=== PATIENT | female | born 1940 | race Caucasian/White ===

== ENCOUNTER 2020-12-11 12:33 | Emergency (ER) | payer MEDICARE, MEDICAID, SELFPAY ==
--- NOTE | ~2020-12-11 | XR_ITS ---
EXAMINATION: XR chest 1V portable EXAM DATE: 12/11/2020 12:55 INDICATION: Transient alteration of awareness. TECHNIQUE: Portable AP frontal chest x-ray was obtained. There is no prior study for comparison. FINDINGS: The lungs are clear. There are no pleural effusions. The cardiomediastinal silhouette is within normal limits. There is no pneumothorax suspected. The bones and soft tissues are unremarkab le. IMPRESSION: No acute cardiopulmonary findings. Reviewed, dictated and finalized at location B.
[2020-12-11 12:30] VITALS: BP 112/68; PULSE 67; RESP 17; TEMP 36.4; O2SAT 97
--- NOTE | 2020-12-11 12:40 | ECG_ITS ---
Measurements Intervals [place] Rate: 74 P: 68 RI: 133 QRS: -18 QRSD: 83 T: 49 QT: 379 QTc: 422 Interpretive Statements SINUS RHYTHM WITH SINUS ARRHYTHMIA ATRIAL PREMATURE COMPLEXES VOLTAGE CRITERIA FOR LVH BASELINE ARTIFACT- I, II, III, AVR, AVL, AVF, V1-V6 BORDERLINE ECG Electronically Signed On 12-11-2020 13:03:15 CDT by Sharif Rogers D.O.
[2020-12-11 13:18] LABS: Basophils Percent Auto 0.2 % (0.2-1.2); Hematocrit 37.5 % (37.0-47.0); Hemoglobin 12.4 g/dL (12.0-15.0); Immature Granulocyte Absolute 0.05 K/mm3 (0.00-0.031); Immature Granulocyte Percent A 0.5 % (0-0.5); Lymphocytes Absolute Auto 0.89 K/mm3 (0.9-3.2); Lymphocytes Percent Auto 9.1 % (18.3-44.2); Mean Corpuscular HGB Conc 33.1 g/dl (32-36); Mean Corpuscular Hemoglobin 31.5 pg (26-34); Mean Corpuscular Volume 95.2 fl (80-100); Mean Platelet Volume 9.1 fl (7.4-10.4); Monocytes Absolute Auto 0.7 K/mm3 (0.1-0.6); Monocytes Percent Auto 6.6 % (2.6-8.5); Neutrophils Absolute Auto 8.2 K/mm3 (1.3-6.7); Neutrophils Percent Auto 83.6 % (45.5-73.1); Platelet Count Result 246 k/mm3 (150-375); Red Blood Count 3.94 M/mm3 (4.2-5.4); Red Cell Distribution Width 12.8 % (11.5-14.5); White Blood Count 9.8 K/mm3 (4.5-10.0)
[2020-12-11 13:27] LABS: Lipase 63 U/L (23-300)
[2020-12-11 13:29] LABS: Alanine Aminotransferase 16 U/L (4-35); Albumin Level 3.9 g/dL (3.5-5.1); Alkaline Phosphatase 55 U/L (38-126); Anion Gap 7 mmol/L (8-16); Aspartate Amino Transferase 19 U/L (14-36); Bilirubin,Total 0.3 mg/dL (0.2-1.3); Blood Urea Nitrogen 27 mg/dL (7-17); Calcium 11.5 mg/dL (8.4-10.2); Carbon Dioxide 28 mmol/L (22-30); Chloride 107 mmol/L (98-107); Estimated CRCL calculation 41 ml/min; Estimated Glomerular Filt Rate 60; Glucose 139 mg/dL (65-110); Potassium 4.3 mmol/L (3.4-5.0); Sodium 142 mmol/L (137-145)
--- NOTE | 2020-12-11 14:10 | ED.AMS ---
HPI - Altered Mental Status General Chief Complaint: Altered Mental Status Stated Complaint: SLOW TO RESPOND Time Seen by Provider: 12/11/20 12:39 Mode of arrival: EMS Limitations: clinical condition History of Present Illness HPI narrative: 80-year-old female Arrives from half-way with a distinct lack of any supporting documentation of the reason for her visit for the symptoms that led for her to be sent over Apparently there was concern that she was responding slowly but it is unknown who registered that concern or why Here she seems to be responding just fine although she does appear to be frail and elderly and naps when she is left alone She is pleasant and cooperative and makes no complaints, denies feeling ill, and does not complain of any pain anywhere She is DNR/comfort measures per her half-way paperwork Review of Systems Constitutional: Constitutional: Denies fever(s) Cardiovascular: Cardiovascular: Denies chest pain Respiratory: Respiratory: Denies cough Gastrointestinal: Gastrointestinal: Denies vomiting Genitourinary: Genitourinary: Denies flank pain Integumentary/Breasts: Skin/Breast: Denies rash Neurologic: Denies headache(s) and Denies weakness [facility] Past Medical History Medical History (Updated 12/11/20 @ 14:46 by Fer Veronica MD) Dementia Hypertension Exam Const: General: cooperative and no acute distress Other: Frail, elderly HENMT: Head: normal to inspection, normocephalic, atraumatic, no contusions and no hematomas Ears: external ears normal General nose exam: no epistaxis Eyes: Conjunctivae: conjunctivae normal EOM: EOMs intact bilaterally Neck: Neck: normal visual inspection, supple and no JVD Resp: Effort & Inspection: normal respiratory effort and not labored Auscultation: clear to auscultation bilaterally, no rales, no rhonchi, no wheezes and other (BS =) Cardio: Rate: regular rate Rhythm: regular rhythm Heart sounds: no murmurs GI: GI Palp: Yes Soft to palpation, No Guarding due to palpation present (GI), No Palpable mass present and No Rebound tenderness present : General: Yes no CVA tenderness Skin: General skin exam: normal color and no rashes or lesions noted Neuro: General: moves all extremities Speech: normal speech Other: Legs are weak, 5-, but symmetric Extrem: General: normal to inspection and no pedal edema Psych: Affect: normal affect Course Course Emergency Course: Reviewed results with jodi Fine to go back to nursing facility Vital Signs Vital signs: Vital Signs Temperature 36.4 C 12/11/20 12:30 Pulse Rate 67 12/11/20 12:30 Respiratory Rate 17 12/11/20 12:30 Blood Pressure 112/68 12/11/20 12:30 Pulse Oximetry 97 12/11/20 12:30 Temperature 36.4 C 12/11/20 12:30 Pulse Rate 67 12/11/20 12:30 Respiratory Rate 17 12/11/20 12:30 Blood Pressure 112/68 12/11/20 12:30 Pulse Oximetry 97 12/11/20 12:30 MDM - Altered Mental Status Lab Data Result diagrams: 12/11/20 13:07 12/11/20 13:07 Labs: Lab Results 12/11/20 12/11/20 12/11/20 Range/Units 13:07 13:07 13:07 WBC 9.8 (4.5-10.0) K/mm3 RBC 3.94 L (4.2-5.4) M/mm3 Hgb 12.4 (12.0-15.0) g/dL Hct 37.5 (37.0-47.0) % MCV 95.2 (80-100) fl MCH 31.5 (26-34) pg MCHC 33.1 (32-36) g/dl RDW 12.8 (11.5-14.5) % Plt Count 246 (150-375) k/mm3 MPV 9.1 (7.4-10.4) fl Immature Gran % (Auto) 0.5 (0-0.5) % Neut % (Auto) 83.6 H (45.5-73.1) % Lymph % (Auto) 9.1 L (18.3-44.2) % [place] % (Auto) 6.6 (2.6-8.5) % Eos % (Auto) 0.0 (0-4.4) % Baso % (Auto) 0.2 (0.2-1.2) % Lymph # (Auto) 0.89 L (0.9-3.2) K/mm3 [place] # (Auto) 0.7 H (0.1-0.6) K/mm3 Eos # (Auto) 0.0 (0-0.3) K/mm3 Baso # (Auto) 0.0 (0.0-0.1) K/mm3 Abs Immat Gran (auto) 0.05 H (0.00-0.031) K/mm3 Absolute Neuts (auto) 8.2 H (1.3-6.7) K/mm3 Absolute Nucleated RBC 0.0
[2020-12-11 14:14] LABS: Add Urine Microscopic? YES; Appearance Urine Cloudy (Clear); Bacteria Urine Trace /hpf; Bilirubin Urine Negative (Negative); Blood Urine Negative (Negative); Color Urine Yellow (Yellow); Glucose Urine UA Negative (Negative); Ketones Urine Negative (Negative); Leukocyte Esterase Ur Negative LEU/UL (Negative); Mucus Urine Rare /lpf; Nitrate Urine Positive (Negative); Protein Urine 2+ mg/dL (Negative); RBC Urine 0-2 /hpf (0-2); Specific Grav Ur 1.017 (1.001-1.035); Squamous Epithelial Cell Urine Occasional /hpf (Few); Urobilinogen Urine Negative mg/dL (<2.0)
[2020-12-11 14:24] VITALS: BP 144/88; PULSE 78; RESP 16; O2SAT 98
== END 2020-12-11 18:30 ==
PROVIDERS: Emergency Provider Emergency Medicine; PCP Family Medicine
DX: R41.82 Altered mental status, unspecified (principal); E83.52 Hypercalcemia
CPT/HCPCS: 36415; 51701; 71045; 80053; 81001; 83690; 85025; 93005; 99283